=== PATIENT | female | born 1945 | race Caucasian/White ===

== ENCOUNTER 2021-12-09 11:33 | Outpatient (CLI) | payer OTHER, SELFPAY ==
[2021-12-09 12:09] LABS: Creatinine* 0.8 mg/dL (0.5-1.5); Estimated Glomerular Filt Rate 76 ml/min
--- NOTE | 2021-12-09 13:00 | CRLHL7_ITS ---
For Patients: As a result of the Century Cures Act, medical imaging exams and procedure reports are released immediately into your electronic medical record. You may view this report before your referring provider. If you have questions, please contact your health care provider. DATE: 12/09/2021. CLINICAL HISTORY: Patient with cerebral aneurysm. TECHNIQUE: Standard helical CT image acquisition through the head following the administration of intravenous contrast was performed. Multiplanar reconstructed images performed on a separate workstation. COMPARISON: None available. 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 There are no additional cerebral aneurysms. The remainder of the intracranial vasculature is unremarkable. 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 Please note that all CT scans at this facility use dose modulation, iterative reconstruction, and/or weight-based dosing when appropriate to reduce radiation dose to as low as reasonably achievable. Dictated by Kaz Chapa MD @ 12/09/2021 3:49:23 PM (Electronically Signed)
== END 2021-12-09 11:34 | disposition home or self-care (01) ==
LOC: CT 11:34
PROVIDERS: PCP Family Medicine; Visit Provider Radiology Neuroradiology
DX: I67.1 Cerebral aneurysm, nonruptured (principal)
CPT/HCPCS: 36415; 70496; 82565; Q9967

== ENCOUNTER 2022-03-02 15:15 | Outpatient (RCR) | payer OTHER, SELFPAY | END 2022-05-14 11:11 | disposition home or self-care (01) | PROVIDERS: PCP Family Medicine; Visit Provider Family Medicine | DX: R51.9 Headache, unspecified (principal); Z51.89 Encounter for other specified aftercare | CPT/HCPCS: 97110; 97112; 97140; 97162 ==

== ENCOUNTER 2023-04-26 07:31 | Day surgery (SDC) | payer OTHER, SELFPAY ==
[2023-04-26] MEDS: LACTATED RINGERS 1000 ML 1,000 ML 100 ML IV (07:45)
[2023-04-26 07:56] VITALS: BMI 38.2
[2023-04-26 08:01] VITALS: BP 172/79; PULSE 70; RESP 16; TEMP 37; O2SAT 98
[2023-04-26] MEDS: SODIUM CHLORIDE 0.9 % (FLUSH) 10 ML SYRINGE IVF (08:17)
--- NOTE | 2023-04-26 08:31 | W.ANESCHARGE ---
Anesthesia Charges Start Date/Time Anesthesia Start Date: 04/26/23 Anesthesia Start Time: 08:47 Stop Date/Time Anesthesia Stop Date: 04/26/23 Anesthesia Stop Time: 09:49 Summary Extremes of Age - Over 70 or under 1: MDA
--- NOTE | 2023-04-26 08:47 | W.PM.H&PU ---
History & Physical Update History & Physical Update H&P Reviewed and patient assessed: No changes noted
[2023-04-26] MEDS: CEFAZOLIN 2 GM INJ IVP (08:59)
[2023-04-26] MEDS: BUPIVACAINE 0.25% 30 ML INJECTION (09:03)
--- NOTE | 2023-04-26 09:55 | P.GSOP_ITS ---
Operative Note Date of procedure: 04/26/23 Pre-op diagnosis: 1. Symptomatic right hip mass. Post-op diagnosis: 1. Right hip lipoma. Type of Procedure: 1. Excision of right hip soft tissue mass 15 x 5 cm. Indications: 77-year-old female was seen in clinic for evaluation of right hip mass. Patient noticed that her right hip was asymmetric when she was washing herself in the shower. She stated that prior to her presentation she was noticing burning pain over the right side of her hip. This was worse with sitting. Patient had bilateral hip replacement and was seen by Orthopedics. The orthopedic surgeon did not think that her hip pain was related to the hip joint. On clinical exam over the right hip there was a soft tissue asymmetry the that was somewhat mobile and measuring approximately 12 x 5 cm. There is no overlying erythema. Given patient's asymmetry on clinical exam and her constant pain, excision with MAC anesthesia was recommended. The procedure was discussed in detail. The risks associated procedure including infection, bleeding, and possible persistence of her pain were all discussed with the patient, and she agreed to proceed. Procedure Description: After discussing the risks and benefits of the procedure, the patient signed informed consent.? The operative site was marked and the patient was brought to the operating room and placed in the left lateral decubitus position on the operating table.? Care was taken to pad the patient's pressure points.?? The patient was then sedated by anesthesia.?? The operative site was then prepped and draped in the usual sterile fashion.? A time-out was then performed. Local anesthetic was injected in the surgical site. A horizontal elliptical skin incision was made with a scalpel. The dermis was divided with a scalpel. Subcutaneous tissue was divided with cautery. I was able to identify somewhat encapsulated lipoma. This was excised from subcutaneous tissues with cautery. Hemostasis was achieved with cautery and with Vicryl ties. When the lipoma was excised, it was sent to pathology. It was measuring 15 x 5 cm. Additional local anesthetic was injected at the surgical site. Subcutaneous fat was reapproximated in layers with interrupted 2-0 Vicryl sutures. The dermis was reapproximated with interrupted 3-0 Vicryl sutures. The length of the incision was 17 cm. The skin was closed with a running 4-0 Monocryl stitch. Steri- Strips and sterile pressure dressings were placed over the incisions. ? The patient was then woken and transported to the recovery area in stable condition. ? The patient tolerated the procedure well. Findings: Lipoma overlying the right hip there Anesthesia: MAC and local Surgeon: Juanpablo Lee MD Estimated blood loss (mL): 5 Additional Specimen Information: 1. Right hip mass Condition: stable Disposition: same day
[2023-04-26 09:56] VITALS: BP 101/49; PULSE 60; RESP 16; TEMP 36.6; O2SAT 96
[2023-04-26 10:00] VITALS: BP 108/77; PULSE 64; RESP 16; O2SAT 96
--- NOTE | 2023-04-26 10:04 | W.ANESCHARGE ---
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
[2023-04-26 10:15] VITALS: BP 130/74; PULSE 65; RESP 16; O2SAT 96
[2023-04-26 10:30] VITALS: BP 133/88; PULSE 65; RESP 16; O2SAT 96
== END 2023-04-26 10:39 | disposition home or self-care (01) ==
PROVIDERS: PCP Family Medicine; Visit Provider Surgery
PROC: (CPT 27043; principal; 2023-04-26 09:00)
DX: D17.23 Benign lipomatous neoplasm of skin and subcutaneous tissue of right leg (principal)
CPT/HCPCS: 27043; 00400; 88305; 88377; 99100; J0665; J0690; J1100; J1885; J2405; J2704; J3010; J3490; J7120

== ENCOUNTER 2023-11-25 21:09 | Emergency (ER) | payer OTHER, SELFPAY ==
[2023-11-25] VITALS (23 sets, daily range): BP systolic 146–179; BP diastolic 69–86; PULSE 57–74; RESP 14–16; TEMP 37.1; O2SAT 94–99; BMI 36.5
--- NOTE | 2023-11-25 21:31 | CRLHL7_ITS ---
For Patients: As a result of the Century Cures Act, medical imaging exams and procedure reports are released immediately into your electronic medical record. You may view this report before your referring provider. If you have questions, please contact your health care provider. Indication: Headache Technique: Noncontrast CT through the head with multiplanar reformats Comparison: CTA head performed 12/09/2021 Findings: Brain: No acute hemorrhage. No acute infarct. No significant mass effect or midline shift. No gross evidence of a mass lesion or cerebral edema. Moderate chronic microvascular ischemic disease. Mild global parenchymal volume loss. Ventricles: No acute abnormality appreciated. Orbits, sinuses, mastoids: No acute abnormality appreciated. Calvarium and soft tissues: No acute abnormality appreciated. Impression: No acute abnormality appreciated. Please note that all CT scans at this facility use dose modulation, iterative reconstruction, and/or weight-based dosing when appropriate to reduce radiation dose to as low as reasonably achievable. Dictated by Inderjit Patrick MD @ 11/25/2023 11:08:13 PM (Electronically Signed)
--- NOTE | 2023-11-25 21:32 | ED_ITS ---
HPI - Headache General Chief Complaint: Headache/Migraine Stated Complaint: Headache, lightheaded Time Seen by Provider: 11/25/23 21:17 Source: patient Mode of arrival: ambulatory Limitations: no limitations History of Present Illness HPI Narrative: Patient is a 78-year-old female presenting to the emergency department for a headache. States that about 230 this morning she started to have a headache and took some Tylenol which improved the headache somebody returned worse again at about 530. At that time she is also feeling dizzy and overnight Tylenol at about 830 without any relief. Also states the left side of her face along the jaw line is painful going down through her neck. She does states she feels mildly dizzy but does have balance issues at baseline. Is having some difficulty finding words. Of note she states she has a history of migraines in the past and she can migrans the left side of her face and arm were getting numb but he has not had migraines for a long time she states. Does states when she gets headache she will have these word-finding issues. No history of strokes. Denies chest pain, shortness of breath, abdominal pain, diarrhea, constipation, weakness, numbness. Does states she initially had some blurry vision like previous migraines but that has since resolved. No other concerns noted. Related Data Home Medications ?Medication ?Instructions ?Recorded ?Confirmed furosemide 40 mg tablet 40 mg PO BID 03/22/22 10/20/23 levothyroxine 75 mcg tablet 75 mcg PO QDAY 03/22/22 10/20/23 lisinopril 20 mg tablet 20 mg PO QDAY 03/22/22 10/20/23 simvastatin 20 mg tablet 20 mg PO QDAY 03/22/22 10/20/23 aspirin 81 mg tablet,delayed 81 mg PO QDAY 03/25/22 10/20/23 release Lactobacillus 1 cap PO Q OTHER DAY 04/07/23 10/20/23 acidophilus-Bifidobac.animalis 31 billion cell capsule calcium carbonate 500 mg PO .Daily as needed PRN 04/07/23 10/20/23 glucosamine-chondroitin 500 mg-400 1 cap PO BID 04/07/23 10/20/23 mg capsule omega 3-nsi-miu-fish oil 100 1 cap PO 04/07/23 10/20/23 mg-160 mg-1,000 mg capsule (Fish Oil) potassium chloride 20 mEq oral meq PO 04/07/23 10/20/23 packet vit A 300 mcg-C 200 mg-E 27 1 tab PO 04/07/23 10/20/23 mg-lutein 2 mg and minerals tablet (Ocuvite with Lutein) omeprazole 20 mg capsule,delayed 20 mg PO DAILY 10/20/23 10/20/23 release Allergies Allergy/AdvReac Type Severity Reaction Status Date / Time hydrocodone Allergy Unknown Verified 10/20/23 13:43 Review of Systems Status of ROS: Reports: 10 or more systems reviewed and unremarkable except as noted in History and below [facility] Medical History Tinnitus ?H93.19 - Tinnitus, unspecified ear (ICD-10) Postural lightheadedness ?R42 - Dizziness and giddiness (ICD-10) Obstructive sleep apnea with use of bilevel positive airway pressure (BPAP) ?G47.33 - Obstructive sleep apnea (adult) (pediatric) (ICD-10) Nephrotic syndrome ?N04.9 - Nephrotic syndrome with unspecified morphologic changes (ICD-10) Hypothyroidism ?E03.9 - Hypothyroidism, unspecified (ICD-10) Hypertension ?I10 - Essential (primary) hypertension (ICD-10) Hyperlipidemia ?E78.5 - Hyperlipidemia, unspecified (ICD-10) History of migraine ?Z86.69 - Personal history of other diseases of the nervous system and sense organs (ICD-10) Melanoma in situ ?D03.9 - Melanoma in situ, unspecified (ICD-10) Diverticulitis ?K57.92 - Diverticulitis of intestine, part unspecified, without perforation or abscess without bleeding (ICD-10) Melanoma ?C43.9 - Malignant melanoma of skin, unspecified (ICD-10) Obesity ?E66.9 - Obesity, unspecified (ICD-10) Chronic kidney disease (CKD) ?N18.9 - Chronic kidney disease, unspecified (ICD-10) Surgical History S/P laparoscopic-assisted sigmoidectomy ?Z90.49 - Acquired absence of other specified parts of digestive tract (ICD- 10) History of partial colectomy ?Z90.49 - Acquired absence of other specified parts of digestive tract (ICD- 10) History of cholecystectomy ?Z90.49 - Acquired absence of other specified parts of digestive tract (ICD- 10) H/O tubal ligation ?Z98.51 - Tubal ligation status (ICD-10) History of appendectomy (~1970) ?Z90.49 - Acquired absence of other specified parts of digestive tract (ICD- 10) H/O left knee surgery (03/07/19) ?Z98.890 - Other specified postprocedural states (ICD-10) 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 Social History Smoking Status: Former smoker What tobacco products do you use: cigarettes Smoking quit date/years: >15 years ago Do you use any of these nicotine containing products: None Second hand tobacco smoke exposure: No How often do you have a drink containing alcohol: monthly or less How many standard drinks containing alcohol do you have on a typical day: 1 or 2 How often do you have six or more drinks on one occasion: Never AUDIT-C Alcohol total score: 1 Non-prescribed substance use: denies use Caffeine: Yes Exam Narrative: Exam Narrative: Const: Well-nourished, Well-developed, in mild distress Eyes: PERRL, no conjunctival injection, and symmetrical lids HENT: Atraumatic external nose and ears. Moist mucous membranes. Neck: Symmetric, trachea midline, No thyromegaly. CVS: RRR, No murmurs or gallops. Peripheral pulses 2+ and equal in all extremities RESP: Unlabored respiratory effort. Clear to auscultation bilaterally. GI: Nontender/Nondistended, No rebound or guarding. MSK:Extremities w/o deformity, Normal Active ROM Skin: Warm, Dry. No rashes or lesions. Neuro: Normal Muscle tone, Cranial nerves 2-12 grossly intact, normal [id number], normal [id number], normal gait, normal strength 5/5 upper lower extremities bilaterally, normal sensation upper and lower extremities bilaterally, normal rapid alternating movements. Psych: Awake, Alert, & Oriented x3. Appropriate mood and affect. Const: Vital Signs, click to edit/add: Vital Signs - 24 hr 11/25/23 21:17 11/25/23 22:01 11/25/23 22:08 Temperature 98.8 F Pulse Rate 61 61 Pulse Rate [Pulse Oximeter] 74 Respiratory Rate 16 16 Blood Pressure 167/86 H Blood Pressure [Ri ght Upper Arm] 179/82 H Pulse Oximetry 97 97 98 Oxygen Delivery Me thod Room Air 11/25/23 22:26 11/25/23 22:27 11/25/23 22:30 Temperature Pulse Rate 58 L 59 L 57 L Pulse Rate [Pulse Oximeter] Respiratory Rate 16 Blood Pressure 158/75 H Blood Pressure [Ri ght Upper Arm] Pulse Oximetry 97 97 97 Oxygen Delivery Me thod 11/25/23 22:32 11/25/23 22:37 11/25/23 22:42 Temperature Pulse Rate 58 L 61 59 L Pulse Rate [Pulse Oximeter] Respiratory Rate 14 14 Blood Pressure 159/79 H 155/76 H 153/73 H Blood Pressure [Ri ght Upper Arm] Pulse Oximetry 98 98 97 Oxygen Delivery Me thod 11/25/23 22:45 11/25/23 22:47 11/25/23 22:52 Temperature Pulse Rate 58 L 57 L 60 Pulse Rate [Pulse Oximeter] Respiratory Rate 16 Blood Pressure 153/75 H 146/76 H Blood Pressure [Ri ght Upper Arm] Pulse Oximetry 95 96 95 Oxygen Delivery Me thod 11/25/23 22:58 11/25/23 23:00 11/25/23 23:02 Temperature Pulse Rate 58 L 61 62 Pulse Rate [Pulse Oximeter] Respiratory Rate Blood Pressure 146/79 H 147/76 H Blood Pressure [Ri ght Upper Arm] Pulse Oximetry 94 94 96 Oxygen Delivery Me thod 11/25/23 23:08 11/25/23 23:12 11/25/23 23:15 Temperature Pulse Rate 61 58 L 60 Pulse Rate [Pulse Oximeter] Respiratory Rate 16 Blood Pressure 148/69 H 152/72 H Blood Pressure [Ri ght Upper Arm] Pulse Oximetry 94 98 98 Oxygen Delivery Me thod 11/25/23 23:17 11/25/23 23:22 11/25/23 23:27 Temperature Pulse Rate 62 61 60 Pulse Rate [Pulse Oximeter] Respiratory Rate 16 16 16 Blood Pressure 154/78 H 156/78 H 150/72 H Blood Pressure [Ri ght Upper Arm] Pulse Oximetry 98 98 99 Oxygen Delivery Me thod 11/25/23 23:30 11/25/23 23:32 Temperature Pulse Rate 59 L 59 L Pulse Rate [Pulse Oximeter] Respiratory Rate 16 16 Blood Pressure 152/73 H Blood Pressure [Ri ght Upper Arm] Pulse Oximetry 99 99 Oxygen Delivery Me thod Course Vital Signs Vital signs: Initial Vital Signs Temperature 98.8 F 11/25/23 21:17 Temperature Source Temporal Artery Scan 11/25/23 21:17 Pulse Rate 74 11/25/23 21:17 Respiratory Rate 16 11/25/23 21:17 Blood Pressure 179/82 H 11/25/23 21:17 Blood Pressure Mean 114 H 11/25/23 21:17 Blood Pressure Position Sitting 11/25/23 21:17 Pulse Oximetry 97 11/25/23 21:17 Oxygen Delivery Method Room Air 11/25/23 21:17 Vital Signs Temperature 98.8 F 11/25/23 21:17 Pulse Rate 74 11/25/23 21:17 Respiratory Rate 16 11/25/23 21:17 Blood Pressure 179/82 H 11/25/23 21:17 Pulse Oximetry 97 11/25/23 21:17 Oxygen Delivery Method Room Air 11/25/23 21:17 Temperature 98.8 F 11/25/23 21:17 Pulse Rate 59 L 11/25/23 23:32 Respiratory Rate 16 11/25/23 23:32 Blood Pressure 152/73 H 11/25/23 23:32 Pulse Oximetry 99 11/25/23 23:32 Oxygen Delivery Method Room Air 11/25/23 21:17 Medications Administered Medications: Discontinued Medications Generic Name Dose Route Start Last Admin Trade Name Freq PRN Reason Stop Dose Admin Diphenhydramine HCl 25 mg 11/25/23 21:30 11/25/23 21:50 Diphenhydramine 50 Mg/Ml Inj IVP 11/25/23 21:31 25 mg ONCE ONE Administration Lactated Ringer's 1,000 mls @ 1,000 mls/hr 11/25/23 21:30 11/25/23 21:53 Lactated Ringers 1000 Ml IV 11/25/23 22:29 1,000 mls/hr .Q1H ONE Administration Metoclopramide HCl 10 mg 11/25/23 21:30 11/25/23 21:50 Metoclopramide Hcl 5 Mg/Ml Inj IVP 11/25/23 21:31 10 mg ONCE ONE Administration MDM - Headache MDM Narrative Medical decision making narrative: Patient is a 78-year-old female presenting to emergency department for headache. She was having some left-sided facial pain and numbness and some word-finding issues but this does sound like she has had previous migraines similar to this. This seems unlikely to be a acute stroke at this time her last known well was 14:30 and she is outside the window anyway so a code stroke is not necessary to be called at this time. Will do a head CT though. Also do CBC, CMP, COVID/flu/RSV. Will give her a migraine cocktail including Reglan, Benadryl, 1 L of fluids. CBC and CMP showed no concerning abnormalities. Head CT is showing no concerning abnormalities as reviewed by myself and the radiologist. She states her headache has improved significantly at this time. She is no longer feeling dizzy and is not having any word-finding issues. This is consistent with my expectations that this is related to migraine and not a stroke. At this time patient states she is feeling well enough to go home. COVID/flu/RSV is negative. Lab Data Labs: Lab Results 11/25/23 11/25/23 Range/Units 22:03 22:30 WBC 9.70 (4.50-11.00) K/uL RBC 4.10 (4.00-5.20) m/uL Hgb 12.6 (12.0-16.0) gm/dL Hct 38.5 (33.0-51.0) % MCV 94 (80-100) fL MCH 31 (26-34) pg MCHC 33 (32-36) gm/dL RDW Coeff of Abby 13.5 (11.5-15.5) % Plt Count 214 (140-440) K/uL Neut % (Auto) 60.2 (42.0-72.0) % Lymph % (Auto) 29.7 (20-44) % [place] % (Auto) 7.8 (0.0-11.0) % Eos % (Auto) 1.8 (0.0-7.0) % Baso % (Auto) 0.4 (0.0-3.0) % Neut # (Auto) 5.84 (1.7-7.0) K/uL Lymph # (Auto) 2.88 (0.90-2.90) K/uL [place] # (Auto) 0.80 (0.00-0.90) K/UL Eos # (Auto) 0.17 (0.00-0.50) K/uL Baso # (Auto) 0.04 (0.00-0.30) K/uL Abs Immat Gran (auto) 0.01 (0.00-0.30) K/uL Imm/Tot Granulo (auto) 0.1 % Sodium 138 (135-149) mmol/L Potassium 4.1 (3.6-5.1) mmol/L Chloride 102 (96-114) mmol/L Carbon Dioxide 27 (20-32) mmol/L Anion Gap 9 (7-15) mEq/L BUN 14 (7-30) mg/dL Creatinine 0.8 (0.5-1.5) mg/dL Estimated Creat Clear 46.02 Estimated GFR 75 ml/min Glucose 114 (60-115) mg/dL Calcium 9.8 (8.4-10.6) mg/dL Magnesium 2.2 (1.5-2.6) mg/dL SARS-CoV-2 (PCR) Negative SARS-CoV-2 (Negative) Influenza Type A (PCR) Negative PCR FLU A (Negative) Influenza Type B (PCR) Negative PCR FLU B (Negative) RSV (PCR) Negative PCR RSV (Negative) Imaging Data CT scan - head: Attestation: I have reviewed the pertinent imaging results. Radiologist's impression: No acute abnormality appreciated. Please note that all CT scans at this facility use dose modulation, iterative reconstruction, and/or weight-based dosing when appropriate to reduce radiation dose to as low as reasonably achievable. Dictated by Inderjit Patrick MD @ 11/25/2023 11:08:13 PM Discharge Plan Discharge Clinical Impression: Migraine Qualifiers: Migraine type: unspecified Status migrainosus presence: without status migrainosus Intractability: not intractable Qualified Code(s): G43.909 - Migraine, unspecified, not intractable, without status migrainosus Patient Disposition: Home, Self-Care Condition: Improved Instructions: Migraine Headache (ED) Additional Instructions: Continue take Tylenol home for headache. Return to emergency department for any new or worsening symptoms. Prescriptions: No Action simvastatin 20 mg tablet 20 mg PO QDAY levothyroxine 75 mcg tablet 75 mcg PO QDAY Patient Comments: TAKE 1 TABLET (75 MCG) BY MOUTH BEFORE BREAKFAST. lisinopril 20 mg tablet 20 mg PO QDAY Patient Comments: TAKE 1 TABLET BY MOUTH EVERY DAY furosemide 40 mg tablet 40 mg PO BID aspirin 81 mg tablet,delayed release (DR/EC) 81 mg PO QDAY omeprazole 20 mg capsule,delayed release(DR/EC) 20 mg PO DAILY L. acidophilus/Bifid. animalis 31 billion cell capsule 1 cap PO Q OTHER DAY Ocuvite with Lutein 300 mcg-200 mg-27 mg-2 mg tablet 1 tab PO glucosamine-chondroitin 500-400 mg capsule 1 cap PO BID calcium carbonate 500 mg calcium (1,250 mg) tablet 500 mg PO .Daily as needed PRN potassium chloride 20 mEq packet PO Fish Oil 100-160-1,000 mg capsule 1 cap PO Follow Up/Referrals: Lawanda Burnett MD [Primary Care Provider] - Stand Alone Forms: [employer] Info Instructions
--- OUTSIDE RECORDS SUMMARY | 2023-11-25 21:36 | XMS_ITS | Clinical Summary ---
Author Organization [facility] Address [place], [place] [address] Care Team Providers Care Speech And Language Clinician Name Role Phone Haroldo Rodriguez MD Unavailable Unavail Lawanda Dasilva MD Primary Care Provider [phone] Allergies Active Allergy Reactions Criticality Noted Date Comments Hydrocodone Itching High 07/20/2021 Mold Other - Describe In Comment Field 06/16/2020 Nasal stuffiness Medications Medication Sig Dispensed Refills Start Date End Date Status GLUCOSAMINE-CHONDRO ITIN 500 MG-400 MG CAP 0 7 Active CALCIUM ANTACID 500 MG CHEWABLE TAB 0 7 Active Blood Pressure Test Kit-Large kitIndications:Esse ntial hypertension with goal blood pressure less than 130/80 As directed 1 Device. 1 Kit 8 Active lactobacillus combination no.4 (PROBIOTIC) 3 billion cell cap Taking 1 by mouth every other day; 1 daily while on antibiotics 0 9 Active vit C-vit N-fqnibo-jzmytkkd-o rubio (OCUVITE) 250-5-1 mg Take 1 Capsule by mouth once daily. 0 1 Active cholecalciferol (Vitamin D) 1,000 unit capsule Take 1 Capsule (1,000 units) by mouth once daily. 0 2 Active aspirin chewable 81 mg chewable tabletIndications:C arotid artery aneurysm (HC) Chew 1 Tablet (81 mg) by mouth once daily with a meal. 0 3 Active multivitamins-drapery examiner als-lutein (Multivitamin 50 Plus) tab tablet Take 1 Tablet by mouth once daily. 0 3 Active furosemide (LASIX) 40 mg tabletIndications:E ssential hypertension with goal blood pressure less than 130/80,Bilateral leg edema 40 mg in morning, 20 mg in afternoon 180 Tablet 3 3 Active cyanocobalamin (Vitamin B-12) 1,000 mcg tabletIndications:V itamin B12 deficiency Take 1 Tablet (1,000 mcg) by mouth once daily. 4 Active magnesium oxide (MAG-OX 400) 400 mg tabletIndications:D izziness Take 1 Tablet (400 mg) by mouth once daily. 4 Active BiPapIndications:OS A (obstructive sleep apnea) BIPAP machine for home use at pressure: 15/11cmw , choice of mask, lifetime length of need, daily use. 1 Each 4 Active omeprazole (PRILOSEC) 20 mg Delayed-Release capsuleIndications: Abdominal pain, generalized Take 1 Capsule (20 mg) by mouth once daily before a meal. Take 30 minutes prior to a meal 90 Capsule 1 4 Active famotidine (PEPCID) 20 mg tabletIndications:C hronic GERD TAKE 1 TABLET BY MOUTH EVERY DAY 90 Tablet 2 4 Active levothyroxine (SYNTHROID) 75 mcg tabletIndications:H ypothyroidism (acquired) TAKE 1 TABLET (75 MCG) BY MOUTH BEFORE BREAKFAST 90 Tablet 1 4 Active lisinopriL (PRINIVIL; ZESTRIL) 20 mg tabletIndications:E ssential hypertension with goal blood pressure less than 130/80 TAKE 1 TABLET BY MOUTH EVERY DAY 90 Tablet 2 4 Active simvastatin (ZOCOR) 20 mg tabletIndications:H yperlipidemia, unspecified hyperlipidemia type TAKE 1 TABLET BY MOUTH AT BEDTIME 90 Tablet 2 4 Active fluticasone (50 mcg per actuation) nasal solution (FLONASE)Indication s:Allergic rhinitis due to pollen, unspecified seasonality Inhale 2 Sprays to both nostrils once daily. 16 g 4 Active famotidine (PEPCID) 20 mg tabletIndications:C hronic GERD Take 1 Tablet (20 mg) by mouth once daily. 90 Tablet 3 3 11/02/19 24 Discontinued levothyroxine (SYNTHROID) 75 mcg tabletIndications:H ypothyroidism (acquired) Take 1 Tablet (75 mcg) by mouth before breakfast. 90 Tablet 3 3 11/06/19 24 Discontinued lisinopriL (PRINIVIL; ZESTRIL) 20 mg tabletIndications:E ssential hypertension with goal blood pressure less than 130/80 Take 1 Tablet (20 mg) by mouth once daily. 90 Tablet 3 3 11/06/19 24 Discontinued simvastatin (ZOCOR) 20 mg tabletIndications:H yperlipidemia, unspecified hyperlipidemia type Take 1 Tablet (20 mg) by mouth at bedtime. 90 Tablet 3 3 11/06/19 24 Discontinued Active Problems Problem Noted Date Diagnosed Date Class 2 severe obesity with body mass index (BMI) of 35 to 39.9 with serious comorbidity 11/17/2023 Overview: Serious comorbidities include: 1) Hypertension on lisinopril and furosemide 2) YESSENIA Allergic rhinitis 08/11/2022 Carotid artery aneurysm 05/14/2022 Essential hypertension with goal blood pressure less than 130/80 05/14/2022 History of membranous glomerulonephritis 021 Ganglion cyst of finger of right hand 11/07/2018 YESSENIA 08/25/2018 AHI-80; treatment emergent CSA 08/24 Essential hypertension 09/13/2018 Diverticulosis of large intestine without hemorr evi 03/22/2016 Overview: Colonoscopy 12/2019 moderate diverticulosis, long colon, repeat in 10 years Idiopathic hypertension 12/11/2015 History of melanoma 10/07/2015 Overview: -per 06/07/23 Lawanda Burnett MD note: follows with Dermatology. -per 11/24/22 Lawanda Burnett MD note: Melanoma: Went to [facility] and had another melanoma on her left arm. Had been going to person in [place] and they never noted things. Dr. Cervantes at [facility] biopsied it and showed melanoma. 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 Plantar fasciitis 03/23/2011 Routine general medical exam ination at a health care facility 02/22/2009 Overview: dexa normal 2007 Has had shingles, and no vaccine recommended Colonoscopy 07/2015 diverticuli, no follow up needed Osteoarthrosis, unspecified whether generalized or localized, pelvic region and thigh 02/14/2007 Unspecified hypothyroidism 02/14/2007 Other and unspecified hyperlipidemia 02/14/2007 NEPHROTIC SYNDR W LESION MEMBRAN GLOMERU 007 Overview: Dane Golden had followed, check BMP Pr:Cr every 6 months, send back if worsening Resolved Problems Problem Noted Date Diagnosed Date Resolved Date Nephrotic syndrome with lesi on of membranous glomerulonephritis 02/14/2007 08/19/2016 Overview: followed by haroldo rodriguez Unspecified essential hypertension 02/14/2007 12/11/2015 Encounters Date Type Department Care Team Description 11/19/2023 Refill [facility] [address] [place] [address] Lawanda Burnett MD Refill Request (fluticasone propionate) 11/09/2023 11:00 AM CDT Procedure Only [facility] [address] [place] [address] Toney Maharaj L Ac Acupuncture 11/09/2023 Travel 11/04/2023 Patient Outreach [facility] - Care Management Navigation/[facility] [address] [place] [address] Satish Villanueva [facility] (Care Guide Annual Medicare Wellness Visit outreach/) 11/04/2023 Refill [facility] [address] [place] [address] Lawanda Burnett MD Refill Request (Levothyroxine, Lisinopril, Simvastatin) 11/01/2023 Patient Outreach [facility] - Care Management Navigation/[facility] [address] [place] [address] Satish Villanueva [facility] (Care Guide Annual Medicare Wellness Visit outreach/) 11/01/2023 Refill [facility] [address] [place] [address] Lawanda Burnett MD Refill Request (Famotidine) 10/24/[address] [facility] Care Management - Care Management Navigation/[facility] [address] [place] [id number] Satish Villanueva [facility] (Care Guide Annual Medicare Wellness Visit outreach/) 10/13/2023 10:00 AM CDT Procedure Only [facility] [address] [place] [address] Toney Maharaj L Ac Acupuncture 10/13/2023 Travel 09/16/2023 11:00 AM CDT Procedure Only [facility] [address] [place] [address] Toney Maharaj L Ac Acupuncture 09/06/2023 10:50 AM CDT Office Visit [facility] [address] [place] [address] Lawanda Burnett MD Follow Up 09/06/2023 Travel from Last 3 Months Immunizations Name Administration Dates Next Due Amb Influenza, Inact (High-d ose Quadrivalent) (Flu Clinic Only) 02/18/2020 Amb Influenza, Inact (High-d ose) (Flu Clinic Only) 02/19/2016,02/13/2015,02/12/2014 COVID-19 vaccine ([employer] NTech 30mcg/0.3mL) 12YO+ BIVALENT PF, MDV 01/19/2022 COVID-19 vaccine ([employer] NTech 30mcg/0.3mL) PF, MDV 01/30/2021,06/28/2020,06/07/2020 HepA-HepB (Twinrix) 04/23/2013 Influenza, High-dose Inactivated 02/14/2019,02/23,02/16/2017 Influenza, High-dose Quadriv alent Inactivated 01/19/2023,02/04/2022,02/12/2021 Influenza, IIV3 (Age 6-35 mos) 03/03/2011 Influenza, IIV3 (Age >=3 years) 01/04/20 13,01/21/2012,02/24/2010,2008,02/20/2008,02/13/2007,03/05/2006,1 05/09/2004,02/06/2004 Influenza, IIV4 04/10/2009 Pneumococcal Poly,23-Valent (Pneumovax) 01/03/2013,05/24/2007 Pneumococcal conj 13-Valent (Prevnar 13) 05/10/2014 Td (Age >=7 Years) 09/24/1999 Td, Preservative Free (age > = 7 Years) 02/24/2010 Tdap 06/15/2022,04/03/2012 Zoster (Shingrix-RZV, recombinant) 12/12/2018, Family History Medical History Relation Name Comments Diabetes Brother Hypertension Father Genetic Other Father with mac lalitar hole Cancer-breast No Family History Cancer-colon No Family History Cancer-ovarian No Family History Relation Name Status Comments Brother Father Other Social History Tobacco Use Types Packs/Day Years Used Date Smoking Tobacco: Former Cigarettes 0.1 5 0 05/31/1963 - 05/31/1968 Smokeless Tobacco: Never Tobacco Cessation:Counseling Given: Yes Comments:on/off over 5 yrs Alcohol Use Standard Drinks/Week Comments Yes 0 (1 standard drink = 0.6 oz pur e alcohol) 2 drinks per year at most PHQ-2 Answer Date Recorded PHQ-2 TOTAL SCORE 0 10/07/2022 Social Connections Answer Date Recorded Frequency of Communication with Friends and Fami ly 0 03/02/2023 Financial Resource Strain Answer Date R ecorded Difficulty of Paying Living Expenses 3 03/02/2023 Difficulty of Paying Living Expenses Not on file 03/02/2023 Food Insecurity Answer Date Recorded Worried About Running Out of Food in the Last Ye ar 1 03/02/2023 Transportation Needs Answer Date Record ed Lack of Transportation (Medical) 1 03/02/2023 Housing Stability Answer Date Recorded Unable to Pay for Housing in the Last Year 1 03/02/2023 Sex and Gender Information Value Date Recorded Sex Assigned at Not on file Gender Identity Not on file Sexual Orientation Not on file Obstetrics History Last Filed Vital Signs Vital Sign Reading Time Taken Comments Blood Pressure 127/77 09/06/2023 10:52 AM CDT Pulse 71 09/06/2023 10:52 AM CDT Temperature 36.6 ??C (97.8 ??F) 07/17/2021 2:10 PM CD T Respiratory Rate 20 11/07/2018 10:0 6 AM CDT Oxygen Saturation 97% 09/06/2023 10: 52 AM CDT Inhaled Oxygen Concentration - - Weight 113.7 kg (250 lb 9.6 oz) 08/22/2023 9:58 AM CDT Height 171.5 cm (5' 7.52) 08/22/2023 9:58 AM CD T Body Mass Index 38.65 08/22/2023 9:58 AM CDT Plan of Treatment Upcoming Encounters Date Type Department Care Team (Late st Contact Info) Description 12/08/2023 9:00 AM CDT Procedure Only [facility] [address] [place] [address] Toney Maharaj L Ac [address] [place] [address] 12/20/2023 10:50 AM CDT Office Visit [facility] [address] [place] [address] Lawanda Burnett MD [address] [place] [address] Health Maintenance Due Date Last Done Comments Hepatitis C screening for ag e 18-79 1963 COVID-19 vaccine series (2022- season) 2022 01/19/2022, 08/21/2021, 01/30/2021, Additional history exists Depression screening for age 12+ 10/08/2023 10/07/2022, 10/07/2022, 07/29/2021, Additional history exists Medicare Wellness for age 65+ 10/08/2023, 07/29/2021, 05/28/2020, Additional history exists Influenza for age 65+ 12/25/2023 01/19/2023 , 02/04/2022, 02/12/2021, Additional history exists BMI (ht and wt on same day) for age 18+ 08/21/2024 08/22/2023, 04/14/2023, 10/07/2022, Additional history exists Tetanus booster 06/15/2032 06/15/2022, 03/25, 02/24/2010, Additional history exists Pneumococcal series for age 65+ Completed 05/10/2014, 01/03/2013, 05/24/2007 DEXA/DXA scan for age 65+ Completed 05/29/2015, 02/2008 Zoster (shingles) series for age 50+ Completed 12/12/2018, 07/28/2018 Tdap Completed 06/15/2022, 04/03/2012 Procedures Procedure Name Priority Date/Time Associated Diagnosis Comments ACUPUNCTURE PLAN OF CARE Routine 11/09/2023 10:55 AM CDT Peripheral sensory neuropathy Other low back pain ACUPUNCTURE PLAN OF CARE Routine 10/13/2023 9:56 AM CDT Peripheral sensory neuropathy Other low back pain ACUPUNCTURE PLAN OF CARE Routine 09/16/2023 10:45 AM CDT Peripheral sensory neuropathy Other low back pain XR DXA BONE DENSITY 1 SITE AXIAL AND 1 SITE PERIPHERAL Routine 05/29/2015 10:18 AM DICE TABLE PERSON Medicare annual wellness visit, subsequent from Last 3 Months or Most Recently Relevant to Health Maintenance Results * XR DXA BONE DENSITY 1 SITE AXIAL AND 1 SITE PERIPHERAL (05/29/2015 10:18 AM DICE TABLE PERSON) Anatomical Region Laterality Modality LUMBAR SPINE Other Narrative 06/11/2015 9:37 PM DICE TABLE PERSON Please see scanned document for results of this study. Olga Cross MD DEXA from Last 3 Months or Most Recently Relevant to Health Maintenance Advance Directives Documents on File Type Date Recorded Patient Director Critical Care Expl anation Healthcare Directive 06/27/2020 2:39 PM [facility] CARE DIRECTIVE Care Teams Speech And Language Clinician Relationship Specialty Start Date End Date Lawanda Burnett MD [address] [place] [address] PCP - General Family Practice 02/02/17 Haroldo Rodriguez MD Nephrology 04/03/12
[2023-11-25] MEDS: METOCLOPRAMIDE HCL 5 MG/ML INJ 10 MG IVP (21:50)
[2023-11-25] MEDS: diphenhydrAMINE 50 MG/ML inj 25 MG IVP (21:50)
[2023-11-25] MEDS: LACTATED RINGERS 1000 ML 1,000 ML IV (21:53)
[2023-11-25 22:09] LABS: Basophils Absolute Auto 0.04 K/uL (0.00-0.30); Basophils Percent Auto 0.4 % (0.0-3.0); Eosinophils Absolute Auto 0.17 K/uL (0.00-0.50); Eosinophils Percent Auto 1.8 % (0.0-7.0); Hematocrit 38.5 % (33.0-51.0); Hemoglobin* 12.6 gm/dL (12.0-16.0); Immature Granulocytes Abs Auto 0.01 K/uL (0.00-0.30); Immature Granulocytes Pct Auto 0.1 %; Lymphocytes Absolute Auto 2.88 K/uL (0.90-2.90); Lymphocytes Percent Auto 29.7 % (20-44); Mean Corpuscular HGB Conc 33 gm/dL (32-36); Mean Corpuscular Hemoglobin 31 pg (26-34); Mean Corpuscular Volume 94 fL (80-100); Monocytes Percent Auto 7.8 % (0.0-11.0); Neutrophils Absolute Auto 5.84 K/uL (1.7-7.0); Neutrophils Percent Auto 60.2 % (42.0-72.0); Platelet Count* 214 K/uL (140-440); RDW Coefficient of Variation % 13.5 % (11.5-15.5)
[2023-11-25 22:13] LABS: Slide Review Reflex No
[2023-11-25 22:20] LABS: Chloride* 102 mmol/L (96-114)
[2023-11-25 22:21] LABS: Potassium* 4.1 mmol/L (3.6-5.1); Sodium* 138 mmol/L (135-149)
[2023-11-25 22:23] LABS: Creatinine* 0.8 mg/dL (0.5-1.5); Est. Creatinine Clearance* 46.02; Estimated Glomerular Filt Rate 75 ml/min
[2023-11-25 22:24] LABS: Anion Gap 9 mEq/L (7-15); Blood Urea Nitrogen* 14 mg/dL (7-30); Calcium* 9.8 mg/dL (8.4-10.6); Carbon Dioxide* 27 mmol/L (20-32); Glucose* 114 mg/dL (60-115); Magnesium* 2.2 mg/dL (1.5-2.6)
[2023-11-25 23:16] LABS: PCR FLU A Negative PCR FLU A (Negative); PCR FLU B Negative PCR FLU B (Negative); PCR RSV Negative PCR RSV (Negative); SARS PCR* Negative SARS-CoV-2 (Negative)
== END 2023-11-25 23:46 | disposition home or self-care (01) ==
PROVIDERS: Emergency Provider Student in an Organized Health Care Education/Training Program; PCP Family Medicine
DX: G43.909 Migraine, unspecified, not intractable, without status migrainosus (principal)
CPT/HCPCS: 36415; 70450; 80048; 83735; 85025; 87631; 96374; 96375; 99283; 99284; J1200; J2765; J7120